=== PATIENT | male | born 1995 | race African-American/Black ===

== ENCOUNTER 2024-12-24 16:00 | Emergency (ER) | payer MEDICAID, SELFPAY ==
[2024-12-24 16:20] VITALS: BP 135/97; PULSE 103; RESP 18; TEMP 36.9; O2SAT 96; BMI 46.0
--- NOTE | 2024-12-24 16:30 | XR_ITS ---
Examination: Foot, right, 3 views Technique: AP, oblique, lateral views foot, 3 views Date and time of exam: December 24, 2024 1652 hrs. Indications: Injury to the foot 2 days ago, foot pain Findings: No acute fracture No dislocation No foreign body Impression: No acute fracture There is bone density at the anterior superior margin of the calcaneus which appears to be intact but suggest follow-up ankle films as clinically warranted
--- NOTE | 2024-12-24 16:30 | PD.EDRME ---
Rapid Medical Screening Exam RME Arrival date/time: 12/24/24 16:00 29 yo m present to ED for c/o of right foot/toe injury I have greeted and performed a focused initial assessment of this patient. A comprehensive ED assessment and evaluation of the patient, analysis of all test results, and completion of the medical decision making process will be conducted by additional ED providers. Chief Complaint: Ankle/Foot Injury Time Seen by Provider: 12/24/24 16:21 Vital signs: Vital Signs Temperature 98.4 F 12/24/24 16:20 Pulse Rate 103 H 12/24/24 16:20 Respiratory Rate 18 12/24/24 16:20 Blood Pressure 135/97 H 12/24/24 16:20 Pulse Oximetry (%) 96 12/24/24 16:20 Oxygen Delivery Method Room Air 12/24/24 16:20
[2024-12-24] MEDS: HYDROcodone/APAP 10/325 TAB PO (16:33)
--- NOTE | 2024-12-24 17:14 | EDNOTE_ITS ---
Lower Extremity Injury RME/HPI General Chief Complaint: Ankle/Foot Injury Stated Complaint: STUBBED TOE A FEW DAYS AGO Time Seen by Provider: 12/24/24 16:21 Arrival date/time: 12/24/24 16:00 29 year old male present to emergency room with c/o of stubbing right toe 2 days ago. LOCATION:toe SEVERITY: Symptoms are described as being severe with limitations on activities of daily living QUALITY: Symptoms are described as being dull or achy CONTEXT: accidentally stubbed toe at home DURATION/TIMING: The symptoms started approximately 2 days ago and have been constant this then. ASSOCIATED SYMPTOMS: The patient is unable to identify any other associated symptoms. MODIFYING FACTORS: The patient is unable to identify any alleviating or aggravating symptoms. PERTINENT ROS: no fevers, no headache, no neck or chest pain, no unexplained nausea or vomiting, no focal neurological deficits REVIEW OF SYSTEMS: See History of Present Illness - with the exception of those mentioned in the history of present illness, all other systems reviewed and reported as negative GENERAL: In general the patient is awake, interactive, in an emergency department gurney. HEAD/EYES/EARS/NOSE/THROAT: normo-cephalic, atraumatic, mucus membranes are moist, anicteric, palpebral conjunctiva is pink, trachea is midline. NEUROLOGICAL: cranio-facial features are symmetric, moves all four extremities equally without obvious limitations or weakness. EXTREMITY: right greater toe tenderness, no nail plate involvement. no te nderness to palpation over the long bones or large joints of the bilateral upper and lower extremities, no joint swelling, no joint erythema,no unilateral leg swelling and no peripheral edema. SKIN: warm, dry, well-perfused, no jaundice, no rash, no telangiectasias or petechia. PSYCH: calm, cooperative, no evidence of psychosis or agitation RME / HPI RME / HPI Narrative: 12/24/24 16:00 29 yo m present to ED for c/o of right foot/toe injury I have greeted and performed a focused initial assessment of this patient. A comprehensive ED assessment and evaluation of the patient, analysis of all test results, and completion of the medical decision making process will be conducted by additional ED providers. Related Data Allergies Allergy/AdvReac Type Severity Reaction Status Date / Time gabapentin (From Neurontin) Allergy Anaphylaxis Verified 12/24/24 16:04 Course Course Course Narrative: plan xray to r/o fx vs contusion vs strain/sprain [place] for pain Quality Measures none Orders Category Date Time Status XR foot comp RT min 3V Stat Exams 12/24/24 16:30 Completed HYDROcodone/APAP 10/325 [[place] 10/325] Med 12/24/24 16:30 Discontinued 1 tab PO X1 ONE Vital Signs Vital signs: Vital Signs Temperature 98.4 F 12/24/24 16:20 Pulse Rate 103 H 12/24/24 16:20 Respiratory Rate 18 12/24/24 16:20 Blood Pressure 135/97 H 12/24/24 16:20 Pulse Oximetry (%) 96 12/24/24 16:20 Oxygen Delivery Method Room Air 12/24/24 16:20 Extremity Injury, Lower Patient data External records reviewed:: None Clinical information provided by:: patient Social determinants that could affect healthcare access:: none Patient has the following chronic illnesses:: n/a How is presenting disease/condition affected by chronic disease/condition?: no chronic disease Evaluation data The following diagnostics were reviewed and interpreted by me:: radiology exam(s) Lab and/or radiology exams considered but not ordered:: na Interpretation Summary: xray:?Findings: No acute fracture No dislocation No foreign body Impression: No acute fracture There is bone density at the anterior superior margin of the calcaneus which appears to be intact but suggest follow-up ankle films as clinically warranted Medications / Prescriptions Medications or Prescriptions considered but not ordered:: n/a Medication administrations:: Medication Administration History Discontinued Medications Hydrocodone Bitart/Acetaminophen (Hydrocodone/[place] 10/325 Tab) 1 tab PO X1 ONE Stop: 12/24/24 16:31 Last Admin: 12/24/24 16:33 Dose: 1 tab Documented By: KF n/a Consultations Consultation(s) initiated? (list below): No Diagnosis Extremity Injury, Lower Differential Diagnosis: fracture of toe and other (contusion, vs strain/sprain ) Most likely diagnosis given after review of the tests above:: toe contusion Admission Indicated Admission indicated?: not indicated Admission Request Was there a request for admission?: No Disposition Plan Disposition Plan: Discharge Discharge Attestation Discharge Attestation: The patient and all family members were given an opportunity to ask questions and understood the discharge instructions. Discharge instructions specifically effects, indications for sooner follow up or return to the emergency department, and the expected course of current diagnosis. Patient condition: Stable Discharge Plan Plan Patient Disposition: HOME (Self Care) Health Concerns: Follow with PMD as directed Take tylenol or motrin as need Return to ED if sx worsen Prescriptions/Referrals Referrals: Ramiro Zaman MD [Primary Care Provider] - In 1 week Problem List Clinical Impression: Contusion of toe Patient/Caregiver Discharge Instructions Education Materials: Bone Contusion Print Language: Telugu Stand Alone Forms: Aleksandra Award Info., Patient Portal Info Letter
== END 2024-12-24 17:36 | disposition home or self-care (01) ==
PROVIDERS: Emergency Provider Emergency Medicine; PCP Family Medicine
DX: S90.121A Contusion of right lesser toe(s) without damage to nail, initial encounter (principal); W22.8XXA Striking against or struck by other objects, initial encounter
CPT/HCPCS: 73630; 99283; A9270